=== PATIENT | female | born 1980 | race Caucasian/White ===

== ENCOUNTER → 2019-04-17 | Outpatient (CLI) | payer OTHER ==
[2019-04-17 17:56] LABS: BASO % 0.6 % (0.0-1.0); EOS # 0.2 10^3/uL (0.0-0.50); EOS % 3.4 % (0.0-3.0); HEMATOCRIT 35.4 % (36.0-47.0); HEMOGLOBIN 10.9 g/dl (12.0-15.5); LYMPH # 1.6 10^3/uL (1.5-4.5); LYMPH % 29.6 % (24.0-44.0); MEAN CORPUSCULAR HEMOGLOBIN 26.6 pg (27.0-33.0); MEAN CORPUSCULAR HGB CONC 30.8 g/dl (32.0-36.5); MEAN CORPUSCULAR VOLUME 86.3 fl (80.0-96.0); MONO # 0.3 10^3/uL (0.0-0.8); MONO % 5.1 % (0.0-5.0); NEUTROPHILS # 3.3 10^3/uL (1.8-7.7); NEUTROPHILS % 61.1 % (36.0-66.0); PLATELET COUNT, AUTOMATED 320 10^3/uL (150-450); WHITE BLOOD COUNT 5.3 10^3/uL (4.0-10.0)
[2019-04-17 18:11] LABS: ALBUMIN 3.6 GM/DL (3.2-5.2); ALT/SGPT 17 U/L (12-78); BILIRUBIN,TOTAL 0.3 MG/DL (0.2-1.0); BLOOD UREA NITROGEN 11 MG/DL (7-18); CALCIUM LEVEL 8.8 MG/DL (8.5-10.1); CARBON DIOXIDE LEVEL 29 MEQ/L (21-32); CHLORIDE LEVEL 104 MEQ/L (98-107); CHOLESTEROL LEVEL 167 MG/DL (<200); CREATININE FOR GFR 0.52 MG/DL (0.55-1.30); FREE T4 0.93 NG/DL (0.76-1.46); GLOMERULAR FILTRATION RATE > 60.0 (>60); GLUCOSE, FASTING 80 MG/DL (70-100); HDL CHOLESTEROL 66 MG/DL (>40); IRON (FE) 36 UG/DL (50-170); LDL CHOLESTEROL 83 MG/DL (<100); MAGNESIUM LEVEL 1.8 MG/DL (1.8-2.4); NON-HDL-C 101 MG/DL; PERCENT SATURATION 10.2 % (13.2-45.0); PHOSPHORUS LEVEL 3.5 MG/DL (2.5-4.9); POTASSIUM SERUM 4.1 MEQ/L (3.5-5.1); SODIUM LEVEL 141 MEQ/L (136-145); TOTAL IRON BINDING CAPACITY 352 UG/DL (250-450); TOTAL PROTEIN 6.3 GM/DL (6.4-8.2); TRIGLYCERIDES LEVEL 91 MG/DL (<150)
[2019-04-20 09:02] LABS: VITAMIN B12 LEVEL 385 PG/ML
[2019-04-20 09:03] LABS: FOLATE 15.7 NG/ML
== END ==
LOC: M SMT 10:38
PROVIDERS: ATTEND Physician Assistant
DX: Z13.29 Encounter for screening for other suspected endocrine disorder (principal); E28.2 Polycystic ovarian syndrome

== ENCOUNTER → 2019-05-08 | Outpatient (CLI) | payer OTHER ==
[~2019-05-08] MED LIST: B-12100T2 PO; BIOT5TAB3 PO; CALC-190 PO; CHOL50002 PO; FOLI0.4T2 PO; FURO20TA2 PO; IRON27TA2 PO; K-TA10TA PO; MAGN400C2 PO; METF850T4 PO; NIAC100T9 PO; PANT500T PO; PREG25CA PO; PROBCAP14 PO; PROZ20CA11 PO; PYRI25TA2 PO; RIBO400T PO; RITA10TA PO; SING10TA32 PO; [UNRECOGNIZED DRUG - CODE] MC; [UNRECOGNIZED DRUG - CODE] PO
[2019-05-08 18:26] LABS: BASO % 0.7 % (0.0-1.0); EOS # 0.2 10^3/uL (0.0-0.50); EOS % 3.5 % (0.0-3.0); HEMOGLOBIN 10.2 g/dl (12.0-15.5); LYMPH # 1.3 10^3/uL (1.5-4.5); MEAN CORPUSCULAR HEMOGLOBIN 25.7 pg (27.0-33.0); MEAN CORPUSCULAR VOLUME 85.6 fl (80.0-96.0); MONO # 0.5 10^3/uL (0.0-0.8); MONO % 8.7 % (0.0-5.0); NEUTROPHILS # 3.6 10^3/uL (1.8-7.7); NEUTROPHILS % 63.9 % (36.0-66.0); PLATELET COUNT, AUTOMATED 322 10^3/uL (150-450); RED BLOOD COUNT 3.97 10^6/uL (4.00-5.40); WHITE BLOOD COUNT 5.7 10^3/uL (4.0-10.0)
[2019-05-08 18:35] LABS: HCG, SERUM QUALITATIVE NEGATIVE (NEGATIVE)
== END ==
LOC: M SMT 14:03
PROVIDERS: ATTEND Physician Assistant
DX: Z01.818 Encounter for other preprocedural examination (principal)

== ENCOUNTER 2019-05-12 08:04 | Observation (INO) | payer OTHER ==
[~2019-05-12] VITALS: Ht 167.6 cm; Wt 87.1 kg
[~2019-05-12 08:04] MED LIST changes: -[UNRECOGNIZED DRUG - CODE] MC
[2019-05-12] MEDS ORDERED: ceFAZolin SOD 1 GM in D5W MINI-BAG PLUS 50 ML IV ONE (08:15)
[2019-05-12] MEDS ORDERED: LR 1,000 ML IV ONE (08:15)
[2019-05-12] MEDS ORDERED: [UNRECOGNIZED DRUG - CODE] MC (08:42)
[2019-05-12] MEDS ORDERED: DEXTROSE 50% 50 ML SYRINGE As Ordered ONE (10:12)
[2019-05-12] MEDS ORDERED: PROPOFOL 200 MG/20 ML VIAL As Ordered ONE (10:13)
[2019-05-12] MEDS ORDERED: ONDANSETRON 4MG/2ML VIAL (J2405) As Ordered ONE ×3 (10:13→15:23)
[2019-05-12] MEDS ORDERED: ROCURONIUM BROMIDE 50 MG/5 ML VIAL As Ordered ONE (10:13)
[2019-05-12] MEDS ORDERED: dexameTHASONE 4 MG/ML 1ML VIAL (J1100) As Ordered ONE (10:13)
[2019-05-12] MEDS ORDERED: LIDOCAINE 2% INJ 100 MG/5 ML SDV (FOR ANES.) As Ordered ONE (10:13)
[2019-05-12] MEDS ORDERED: MIDAZOLAM INJ 2 MG/2 ML VIAL (J2250) As Ordered ONE (10:14)
[2019-05-12] MEDS ORDERED: fentaNYL 250 MCG/5 ML INJECTION (J3010) As Ordered ONE (10:14)
[2019-05-12] MEDS ORDERED: DEXTROSE 50% 50 ML SYRINGE IV ONE (10:15)
[2019-05-12] MEDS ORDERED: SEVOFLURANE INHAL SOLN 250 ML BTL As Ordered ONE (10:27)
[2019-05-12] MEDS ORDERED: ePHEDrine SULFATE 25 MG/5 ML(5MG/ML) SYRINGE As Ordered ONE (11:26)
[2019-05-12] MEDS ORDERED: GLYCOPYRROLATE INJ 0.2 MG/ML 2 ML VIAL As Ordered ONE (11:27)
[2019-05-12] MEDS ORDERED: NEOSTIGMINE 10 MG/10 ML VIAL (J2710) As Ordered ONE (11:27)
[2019-05-12] MEDS ORDERED: ACETAMINOPHEN 1000MG 100ML IV BTL (OFIRMEV) (J0131 PER 10MG) As Ordered ONE (11:41)
[2019-05-12] MEDS ORDERED: HYDROmorphone HCL 2 MG/ML 1ML VIAL (J1170) As Ordered ONE (11:51)
[2019-05-12] MEDS ORDERED: LIDOCAINE 1% SDV INJ 30 ML VIAL As Ordered ONE (11:53)
[2019-05-12] MEDS ORDERED: BUPIVACAINE HCL 0.5% 30 ML VIAL As Ordered ONE (11:53)
--- NOTE | 2019-05-12 14:55 | POST-OPPD ---
Postoperative Procedure Note Date Of Procedure: May 12, 2019 PREOPERATIVE DIAGNOSIS: panniculitis POSTOPERATIVE DIAGNOSIS: same FINDINGS: extensive panniculitis PROCEDURE: Extended panniculectomy FleurdeLis with rectus muscle plication. SURGEON: Dr Gama ANESTHESIA: General SPECIMENS: Pannus ESTIMATED BLOOD LOSS: 200cc REPLACED: none DRAINS: 4 PAVITHRA drains 10 mm COMPLICATIONS: none POSTOPERATIVE CONDITION: stable Dict [id number] KAREN GAMA DO May 12, 2019 14:55
[2019-05-12] MEDS ORDERED: fentaNYL 100 MCG/2 ML INJECTION (J3010) As Ordered ONE (15:23)
[2019-05-12] MEDS ORDERED: PERCOCET 5MG/325MG TAB As Ordered ONE (15:23)
[2019-05-12] MEDS ORDERED: LR 1,000 ML IV SCH (15:30)
[2019-05-12] MEDS ORDERED: PERCOCET 5MG/325MG TAB PO PRN (15:30)
[2019-05-12] MEDS ORDERED: ONDANSETRON 4MG/2ML VIAL (J2405) IV PRN ×2 (15:30)
[2019-05-12] MEDS: fentaNYL 100 MCG/2 ML INJECTION (J3010) IV PRN ×5 (15:37→16:00)
[2019-05-12] MEDS: HYDROMORPHONE HCL 0.5 MG/ 0.5 ML SYRINGE (J1170 PER 1) IV PRN ×3 (16:11→20:34)
[2019-05-12 17:00] VITALS: BP 134/73
[2019-05-12 17:30] VITALS: BP 131/71
[2019-05-12] MEDS: LR 1,000 ML IV SCH (18:14)
[2019-05-12] MEDS: ceFAZolin SOD 1 GM in D5W MINI-BAG PLUS 50 ML IV SCH (18:14)
[2019-05-12 18:30] VITALS: BP 139/86
[2019-05-12] MEDS: PERCOCET 5MG/325MG TAB PO PRN ×2 (18:42→22:55)
[2019-05-12 19:30] VITALS: BP 108/67
[2019-05-12 20:30] VITALS: BP 104/67
[2019-05-12 21:30] VITALS: BP 114/72
[2019-05-13] MEDS: HYDROMORPHONE HCL 0.5 MG/ 0.5 ML SYRINGE (J1170 PER 1) IV PRN ×5 (02:03→21:16)
[2019-05-13 02:30] VITALS: BP 112/75
[2019-05-13] MEDS: ceFAZolin SOD 1 GM in D5W MINI-BAG PLUS 50 ML IV SCH (03:17)
[2019-05-13] MEDS: PERCOCET 5MG/325MG TAB PO PRN ×4 (05:14→20:14)
[2019-05-13] MEDS: LR 1,000 ML IV SCH (05:14)
[2019-05-13 06:00] VITALS: BP 121/76
[2019-05-13 07:29] LABS: HEMATOCRIT 24.6 % (36.0-47.0); HEMOGLOBIN 7.7 g/dl (12.0-15.5); MEAN CORPUSCULAR HEMOGLOBIN 26.2 pg (27.0-33.0); MEAN CORPUSCULAR HGB CONC 31.3 g/dl (32.0-36.5); MEAN CORPUSCULAR VOLUME 83.7 fl (80.0-96.0); PLATELET COUNT, AUTOMATED 305 10^3/uL (150-450); RED BLOOD COUNT 2.94 10^6/uL (4.00-5.40); WHITE BLOOD COUNT 8.3 10^3/uL (4.0-10.0)
--- NOTE | 2019-05-13 09:45 | IPNPDOC ---
Subjective General Date/Time Seen The patient was seen on 05/13/19 at 8:15 am. Subject Chief Complaint/History The patient is a 39-year-old female admitted with a reason for visit of Panniculitis and pain control. She is POD 1 after extended panniculectomy with rectus muscle plication. Patient reports still significant post op pain, which is controlled with Dilaudid IV injections. Not ready to switch to full PO medications yet. Tolerating liquids, small meals. Ambulating, urinating well. No CP. SOB, palpitations, dizziness. Current Medications Current Medications Current Medications Cefazolin Sodium 1 gm/Dextrose 50 ml @ 100 mls/hr Q8H IV Last administered on 05/13/19at 03:17; Start 05/12/19 at 19:00; Stop 05/13/19 at 03:29; Status DC Fentanyl Citrate (Sublimaze) 25 mcg Q5MP PRN IV MODERATE PAIN (PS 4-7) Last administered on 05/12/19at 15:55; Start 05/12/19 at 15:30; Stop 05/12/19 at 16:10; Status DC Hydromorphone HCl (Dilaudid) 0.2 mg Q5MP PRN IV MODERATE/SEVERE PAIN (PS 5-10) Last administered on 05/12/19at 16:18; Start 05/12/19 at 15:30; Stop 05/12/19 at 16:30; Status DC Hydromorphone HCl (Dilaudid) 0.5 mg Q4HP PRN IV SEVERE PAIN (PS 8-10) Last administered on 05/13/19at 08:40; Start 05/12/19 at 15:30 Lactated Ringer's 1,000 ml @ 75 mls/hr [id number] IV Last administered on 05/13/19at 05:14; Start 05/12/19 at 15:30 Lactated Ringer's 1,000 ml @ 80 mls/hr [id number] IV ; Start 05/12/19 at 15:30; Stop 05/12/19 at 16:30; Status DC Ondansetron HCl (ZOFRAN INJection) 4 mg Q4HP PRN IV NAUSEA OR VOMITING Last administered on 05/12/19at 15:44; Start 05/12/19 at 15:30; Stop 05/12/19 at 16:30; Status DC Ondansetron HCl (ZOFRAN INJection) 4 mg Q6HP PRN IV NAUSEA; Start 05/12/19 at 15:30 Oxycodone/ Acetaminophen (Percocet 5mg/ 325mg Tablet) 1 tab ASDIRECTED PRN PO MILD/MODERATE PAIN (PS 1-7) Last administered on 05/12/19at 15:37; Start 05/12/19 at 15:30; Stop 05/12/19 at 16:30; Status DC Oxycodone/ Acetaminophen (Percocet 5mg/ 325mg Tablet) 1 tab Q4HP PRN PO MILD PAIN (PS 1-4) Last administered on 05/13/19at 05:14; Start 05/12/19 at 15:30 Allergies Coded Allergies: morphine (Verified Allergy, Severe, ANAPHYLAXIS, 05/12/19) Objective Physical Examination Examination GENERAL APPEARANCE:Patient seen, laying in bed, awake, alert, and oriented. Com fortable, in no acute distress. SKIN: Warm and moist. Incision intact. HEENT: Normocephalic, atraumatic. [place] palpebral conjunctiva, anicteric sclerae. Lips and mucosa appear moist. NECK: Supple, no thyromegaly. No obvious jugular venous distention. LUNGS: Clear to auscultation bilaterally. No wheezing appreciated. HEART: No chest wall abnormalities. Regular rate and rhythm with no murmurs appreciated. ABDOMEN: Abdomen is soft. Flaps viable. Incision intact. PAVITHRA drainage serosanguinous. Post opt pain. Minimal ecchymosis. Vital Signs Vital Signs Date Time Temp Pulse Resp B/P (MAP) Pulse Ox O2 Delivery O2 Flow Rate FiO2 05/13/19 08:40 16 05/13/19 06:00 96.7 78 121/76 (91) 100 05/12/19 16:34 2 I&Os I&O- Last 24 Hours up to 6 AM 05/13/19 06:00 Intake Total 3735 ml Output Total 1030 ml Balance 2705 ml Laboratory Data Labs 24H Laboratory Tests 2 05/12/19 10:31: Bedside Glucose (Misc Panel) 123H 05/12/19 16:22: Bedside Glucose (Misc Panel) 123H 05/13/19 07:05: Nucleated Red Blood Cells % (auto) 0.0 CBC/BMP Laboratory Tests 05/13/19 07:05 Red Blood Count 2.94 L, Mean Corpuscular Volume 83.7, Mean Corpuscular Hemoglobin 26.2 L, Mean Corpuscular Hemoglobin Concent 31.3 L, Red Cell Distribution Width 14.4 Impression S/p extended panniculectomy with rectus muscle plication. Doing well and expectant with recovery. Patient's pain level corresponds with extent of the surgery. Will continue with IV and po pain medicine, gradually switching to PO Percocet. Patient's education given, she states understanding and willingness. H/H drop, asymptomatic, consistent with surgery. Repeat CBC, aroung 1-2 pm. No indication for transfusion at this time. Continue with ambulation. D/c IVF Continue with Incentive spirometry, PAVITHRA monitoring. D/c planning after pain control has been achieved. Plan / VTE VTE Prophylaxis Ordered?: Yes KAREN GAMA DO May 13, 2019 09:45
[2019-05-13 10:00] VITALS: BP 124/82
--- NOTE | 2019-05-13 12:05 | RO ---
DATE OF PROCEDURE: 05/12/2019 PREOPERATIVE DIAGNOSIS: Panniculitis. POSTOPERATIVE DIAGNOSIS: Panniculitis. PROCEDURE: Extended panniculectomy with rectus muscle plication and panniculectomy [id number]. ATTENDING SURGEON: Dolores Lutz DO FIELD PARTY MANAGER: ANESTHESIA: General. SPECIMEN: Pannus. BLOOD LOSS: 200 mL. No replacement needed. DRAINS: Four drains, Acosta-Foley 10 mm flat. COMPLICATIONS: No complications. POSTOP CONDITION: Stable. PROCEDURE: This is a 39-year-old female status post gastric bypass. The patient lost about 200 pounds. She has significant pannus, a massive amount of excess skin. She is very compliant with her diet, has minimal amount of fat, but all the skin did not retract creating a significant pannus, which is above and below the umbilicus. The patient is scheduled for extended panniculectomy with [id number] approach and possible rectus muscle plication. All the risks and benefits and alternatives were discussed with the patient at length. She understands that she will have a large scar, vertical and horizontal, and she is willing to proceed. After obtaining informed consent and marking the patient in the holding area, she was brought into the operating room, placed in supine position. General anesthesia was induced. Preoperative antibiotics are given. Sequential stockings placed on the lower calves. After the anesthesia was induced, a Castillo catheter was introduced into the bladder without any difficulties. She was prepped and draped in the usual sterile fashion. Outlined her lower abdominal incision at 7 cm above the vaginal crease. The incision was carried out using a 10 blade and then careful dissection was done until the rectus muscle was identified using electrocautery. The patient has very large vessels, so most vessels were suture ligated and cauterized at the same time. So we first started raising a flap along the rectus fascia until the umbilicus was encountered and a rhomboid fashion incision was done around the umbilicus and this split the lower portion of the flap and then continued raising the flap superiorly until the xiphoid process was identified and costal margins laterally. There is significant amount of midline skin as well, which was marked out for future [id number] incision. Then the patient was placed in Trendelenburg position and then the rectus fascia is reviewed has some weakening in the middle so the plication was performed. We used two layer suturing with #0 Vicryl and a #1 PDS locking suture burying the knot with #3-0 Vicryl sutures right above the pubic area. After plication was completed, the patient's midsection was measured out so no undue tension would be created and the middle portion of the abdominal wall. Skin was excised totaling 654 grams at the midsection. After excision, the midsection was reapproximated with interrupted #0 Vicryl sutures and #3-0 Monocryl sutures creating a good contour but no tension. Then the patient was placed in the reflex position and the lower portion of the panus was measured and resected, totaling whole amount of panus including the midsection 2271 grams. After all of the excess was resected, it was tailored to the lower incision and we started our closure with interrupted #0 Vicryl sutures and running V-Loc suture #3-0 Monocryl as well as #3-0 Monocryl interrupted sutures. The umbilical stump was brought into the new opening at the incision line of the vertical portion of the [id number] and suture were placed with #3-0 Monocryl sutures and #5-0 plain. Four Acosta-Foley drains were placed inferiorly through the incision. Prineo dressing was applied and 4 x 4 and Xeroform to the umbilicus and a compression dressing. The patient was extubated in the operating room without any difficulties, transferred to the recovery room in stable condition. She is going to be staying in the reflex position for now and she is admitted for observation.
[2019-05-13 14:00] VITALS: BP 121/80
[2019-05-13 15:07] LABS: HEMOGLOBIN 9.1 g/dl (12.0-15.5); MEAN CORPUSCULAR HEMOGLOBIN 27.2 pg (27.0-33.0); MEAN CORPUSCULAR HGB CONC 31.4 g/dl (32.0-36.5); MEAN CORPUSCULAR VOLUME 86.6 fl (80.0-96.0); PLATELET COUNT, AUTOMATED 332 10^3/uL (150-450); RED BLOOD COUNT 3.35 10^6/uL (4.00-5.40); WHITE BLOOD COUNT 8.4 10^3/uL (4.0-10.0)
[2019-05-13] MEDS: FLUoxetine 20 MG CAP PO SCH ×2 (15:23→20:13)
[2019-05-13] MEDS: METHYLPHENIDATE 5 MG TAB PO SCH ×2 (15:42→20:13)
[2019-05-13] MEDS: metFORMIN 850 MG TAB PO SCH ×2 (15:42→20:13)
--- NOTE | 2019-05-13 19:07 | IPNPDOC ---
Subjective General Date/Time Seen The patient was seen on 05/13/19 at 18:59. Subject Chief Complaint/History The patient is a 39-year-old female admitted with a reason for visit of Panniculitis and post op pain management. Patient states the pain is still persistent with current regiment. She has high peaks and valleys. Otherwise recovering well. Ambulating, tolerating diet, had a BM this morning. Current Medications Current Medications Current Medications Cefazolin Sodium 1 gm/Dextrose 50 ml @ 100 mls/hr Q8H IV Last administered on 05/13/19at 03:17; Start 05/12/19 at 19:00; Stop 05/13/19 at 03:29; Status DC Fentanyl Citrate (Sublimaze) 25 mcg Q5MP PRN IV MODERATE PAIN (PS 4-7) Last administered on 05/12/19at 15:55; Start 05/12/19 at 15:30; Stop 05/12/19 at 16:10; Status DC Fluoxetine HCl (PROzac) 20 mg BID PO ; Start 05/13/19 at 09:00 Hydromorphone HCl (Dilaudid) 0.2 mg Q5MP PRN IV MODERATE/SEVERE PAIN (PS 5-10) Last administered on 05/12/19at 16:18; Start 05/12/19 at 15:30; Stop 05/12/19 at 16:30; Status DC Hydromorphone HCl (Dilaudid) 0.5 mg Q4HP PRN IV SEVERE PAIN (PS 8-10) Last administered on 05/13/19at 18:00; Start 05/12/19 at 15:30 Lactated Ringer's 1,000 ml @ 75 mls/hr [id number] IV Last administered on 05/13/19at 05:14; Start 05/12/19 at 15:30; Stop 05/13/19 at 10:26; Status DC Lactated Ringer's 1,000 ml @ 80 mls/hr [id number] IV ; Start 05/12/19 at 15:30; Stop 05/12/19 at 16:30; Status DC Metformin HCl (Glucophage) 850 mg TID PO Last administered on 05/13/19at 15:42; Start 05/13/19 at 16:00 Methylphenidate HCl (Ritalin) 10 mg TID PO Last administered on 05/13/19 15:42; Start 05/13/19 at 16:00 Ondansetron HCl (ZOFRAN INJection) 4 mg Q4HP PRN IV NAUSEA OR VOMITING Last administered on 05/12/19 15:44; Start 05/12/19 at 15:30; Stop 05/12/19 at 16:30; Status DC Ondansetron HCl (ZOFRAN INJection) 4 mg Q6HP PRN IV NAUSEA; Start 05/12/19 at 15:30 Oxycodone/ Acetaminophen (Percocet 5mg/ 325mg Tablet) 1 tab ASDIRECTED PRN PO MILD/MODERATE PAIN (PS 1-7) Last administered on 05/12/19 15:37; Start 05/12/19 at 15:30; Stop 05/12/19 at 16:30; Status DC Oxycodone/ Acetaminophen (Percocet 5mg/ 325mg Tablet) 1 tab Q4HP PRN PO MILD PAIN (PS 1-4) Last administered on 05/13/19 15:43; Start 05/12/19 at 15:30 Allergies Coded Allergies: morphine (Verified Allergy, Severe, ANAPHYLAXIS, 05/12/19) Objective Physical Examination Examination GENERAL APPEARANCE:Patient seen, laying in bed, awake, alert, and oriented. Comfortable, in no acute distress. SKIN: Warm and moist. HEENT: Normocephalic, atraumatic. [place] palpebral conjunctiva, anicteric sclerae. Lips and mucosa appear moist. NECK: Supple, no thyromegaly. No obvious jugular venous distention. LUNGS: Clear to auscultation bilaterally. No wheezing appreciated. HEART: No chest wall abnormalities. Regular rate and rhythm with no murmurs appreciated. ABDOMEN: Abdomen is Soft, non distended. Post op reproducible pain, consistent with surgery. Vital Signs Vital Signs Date Time Temp Pulse Resp B/P (MAP) Pulse Ox O2 Delivery O2 Flow Rate FiO2 05/13/19 18:10 16 05/13/19 14:00 97.0 82 121/80 (94) 100 05/12/19 16:34 2 I&Os I&O- Last 24 Hours up to 6 AM 05/13/19 06:00 Intake Total 3735 ml Output Total 1030 ml Balance 2705 ml Laboratory Data Labs 24H Laboratory Tests 2 05/13/19 07:05: Nucleated Red Blood Cells % (auto) 0.0 05/13/19 14:55: Nucleated Red Blood Cells % (auto) 0.0 CBC/BMP Laboratory Tests 05/13/19 07:05 Red Blood Count 2.94 L, Mean Corpuscular Volume 83.7, Mean Corpuscular Hemoglobin 26.2 L, Mean Corpuscular Hemoglobin Concent 31.3 L, Red Cell Distribution Width 14.4 05/13/19 14:55 Red Blood Count 3.35 L, Mean Corpuscular Volume 86.6, Mean Corpuscular Hemoglobin 27.2, Mean Corpuscular Hemoglobin Concent 31.4 L, Red Cell Distribution Width 14.6 H Impression Post extended panniculectomy POD 1. Will readjust pain management to eliminate break through pain. Dilaudid 0.5 mg Q 3hrs prn severe pain Percocet 325/5mg @4 hrs prn for break through pain. H/H repeated, stable. Continue with monitoring. All findings and plan discussed with patient and she agrees with plan. Plan / VTE VTE Prophylaxis Ordered?: Yes KAREN GAMA DO May 13, 2019 19:07
[2019-05-13 22:00] VITALS: BP 143/85
[2019-05-14] MEDS: MAALOX 30 ML SUSP *UDC PO PRN ×3 (00:14→13:43)
[2019-05-14] MEDS: HYDROMORPHONE HCL 0.5 MG/ 0.5 ML SYRINGE (J1170 PER 1) IV PRN ×4 (00:14→11:24)
[2019-05-14] MEDS: PERCOCET 5MG/325MG TAB PO PRN ×3 (00:59→09:04)
[2019-05-14 06:00] VITALS: BP 120/69
[2019-05-14] MEDS: FLUoxetine 20 MG CAP PO SCH (09:03)
[2019-05-14] MEDS: METHYLPHENIDATE 5 MG TAB PO SCH ×2 (09:03→16:18)
[2019-05-14] MEDS: metFORMIN 850 MG TAB PO SCH ×2 (09:03→16:18)
--- NOTE | 2019-05-14 12:11 | IPNPDOC ---
Subjective General Date/Time Seen The patient was seen on 05/14/19 at 12:06. Doing better with pain control. Ambulating. No CP, SOB, Dizziness. Subject Chief Complaint/History The patient is a 39-year-old female admitted with a reason for visit of Panniculitis. S/p extended panniculectomy with rectus muscle plication, POD 2. Slowly improving with pain control. Patient is ready today to try to switch to PO meds trial. Complaint with walking. Tolerating food. Current Medications Current Medications Current Medications Al Hydrox/Mg Hydrox/Simethicone (Mylanta) 30 ml Q4HP PRN PO INDIGESTION Last administered on 05/14/19 09:10; Start 05/14/19 at 00:15 Cefazolin Sodium 1 gm/Dextrose 50 ml @ 100 mls/hr Q8H IV Last administered on 05/13/19 03:17; Start 05/12/19 at 19:00; Stop 05/13/19 at 03:29; Status DC Fentanyl Citrate (Sublimaze) 25 mcg Q5MP PRN IV MODERATE PAIN (PS 4-7) Last administered on 05/12/19at 15:55; Start 05/12/19 at 15:30; Stop 05/12/19 at 16:10; Status DC Fluoxetine HCl (PROzac) 20 mg BID PO Last administered on 05/14/19at 09:03; St art 05/13/19 at 09:00 Hydromorphone HCl (Dilaudid) 0.2 mg Q5MP PRN IV MODERATE/SEVERE PAIN (PS 5-10) Last administered on 05/12/19at 16:18; Start 05/12/19 at 15:30; Stop 05/12/19 at 16:30; Status DC Hydromorphone HCl (Dilaudid) 0.5 mg Q3HP PRN IV SEVERE PAIN (PS 8-10) Last administered on 05/14/19at 11:24; Start 05/13/19 at 19:15 Hydromorphone HCl (Dilaudid) 0.5 mg Q4HP PRN IV SEVERE PAIN (PS 8-10) Last administered on 05/13/19at 18:00; Start 05/12/19 at 15:30; Stop 05/13/19 at 19:11; Status DC Lactated Ringer's 1,000 ml @ 75 mls/hr [id number] IV Last administered on 05/13/19 05:14; Start 05/12/19 at 15:30; Stop 05/13/19 at 10:26; Status DC Lactated Ringer's 1,000 ml @ 80 mls/hr [id number] IV ; Start 05/12/19 at 15:30; Stop 05/12/19 at 16:30; Status DC Metformin HCl (Glucophage) 850 mg TID PO Last administered on 05/14/19 09:03; Start 05/13/19 at 16:00 Methylphenidate HCl (Ritalin) 10 mg TID PO Last administered on 05/14/19 09:03; Start 05/13/19 at 16:00 Ondansetron HCl (ZOFRAN INJection) 4 mg Q4HP PRN IV NAUSEA OR VOMITING Last administered on 05/12/19 15:44; Start 05/12/19 at 15:30; Stop 05/12/19 at 16:30; Status DC Ondansetron HCl (ZOFRAN INJection) 4 mg Q6HP PRN IV NAUSEA Last administered on 05/13/19 22:40; Start 05/12/19 at 15:30 Oxycodone/ Acetaminophen (Percocet 5mg/ 325mg Tablet) 1 tab ASDIRECTED PRN PO MILD/MODERATE PAIN (PS 1-7) Last administered on 05/12/19 15:37; Start 05/12/19 at 15:30; Stop 05/12/19 at 16:30; Status DC Oxycodone/ Acetaminophen (Percocet 5mg/ 325mg Tablet) 1 tab Q4HP PRN PO MILD PAIN (PS 1-4) Last administered on 05/13/19 20:14; Start 05/12/19 at 15:30 Oxycodone/ Acetaminophen (Percocet 5mg/ 325mg Tablet) 2 tab Q4HP PRN PO SEVERE PAIN (PS 8-10) Last administered on 05/14/19 09:04; Start 05/14/19 at 00:15 Allergies Coded Allergies: morphine (Verified Allergy, Severe, ANAPHYLAXIS, 05/12/19) Objective Physical Examination Examination GENERAL APPEARANCE:Patient seen, laying in bed, awake, alert, and oriented. Comfortable, in no acute distress. SKIN: Warm and moist. Incisions intact. HEENT: Normocephalic, atraumatic. [place] palpebral conjunctiva, anicteric sclerae. Lips and mucosa appear moist. NECK: Supple, no thyromegaly. No obvious jugular venous distention. LUNGS: Clear to auscultation bilaterally. No wheezing appreciated. HEART: No chest wall abnormalities. Regular rate and rhythm with no murmurs appreciated. ABDOMEN: Abdomen is soft NT/ND. PAVITHRA serosanguinous, trending down. Vital Signs Vital Signs Date Time Temp Pulse Resp B/P (MAP) Pulse Ox O2 Delivery O2 Flow Rate FiO2 05/14/19 11:24 18 05/14/19 06:00 97.4 80 120/69 (86) 100 05/12/19 16:34 2 I&Os I&O- Last 24 Hours up to 6 AM 05/14/19 06:00 Intake Total 3480 ml Output Total 145 ml Balance 3335 ml Laboratory Data Labs 24H Laboratory Tests 2 05/13/19 14:55: Nucleated Red Blood Cells % (auto) 0.0 CBC/BMP Laboratory Tests 05/13/19 14:55 Red Blood Count 3.35 L, Mean Corpuscular Volume 86.6, Mean Corpuscular Hemoglobin 27.2, Mean Corpuscular Hemoglobin Concent 31.4 L, Red Cell Distribution Width 14.6 H Impression Extended panniculectomy POD 2. Post op pain management. Switch to Lortab elixir. Patient used this medication successfully for previous post op pain control. Continue with PAVITHRA monitoring, numbers trending down. Repeat CBC D/c planning if CBC stable, and able to switch to PO pain management. Commode for present gate instability and inability to squat low enough. Plan / VTE VTE Prophylaxis Ordered?: Yes KAREN GAMA DO May 14, 2019 12:11
[2019-05-14] MEDS ORDERED: HYDROcodone/APAP LIQUID 7.5-325MG 15ML UDC (LORTAB ELIXIR) PO PRN ×2 (12:15→13:00)
[2019-05-14 12:45] LABS: HEMATOCRIT 25.2 % (36.0-47.0); HEMOGLOBIN 7.9 g/dl (12.0-15.5); MEAN CORPUSCULAR HEMOGLOBIN 26.9 pg (27.0-33.0); MEAN CORPUSCULAR HGB CONC 31.3 g/dl (32.0-36.5); MEAN CORPUSCULAR VOLUME 85.7 fl (80.0-96.0); PLATELET COUNT, AUTOMATED 287 10^3/uL (150-450); RED BLOOD COUNT 2.94 10^6/uL (4.00-5.40); WHITE BLOOD COUNT 6.5 10^3/uL (4.0-10.0)
[2019-05-14] MEDS ORDERED: HYDROcodone/APAP LIQUID 7.5-325MG 15ML UDC (LORTAB ELIXIR) PO ONE ×2 (14:00→15:00)
[2019-05-14] MEDS ORDERED: FERR325T18 PO (14:47)
[2019-05-14] MEDS ORDERED: HYDR1SOL22 PO (14:47)
[2019-05-14 15:02] VITALS: BP 126/75
[2019-05-14] MEDS ORDERED: FERROUS SULFATE 325MG TAB PO SCH (16:00)
[2019-05-14] MEDS ORDERED: COLA100C5 PO (18:01)
[2019-05-14] MEDS ORDERED: MYLASSUD PO (18:01)
--- NOTE | 2019-05-14 18:13 | DS.PDOC ---
Discharge Summary General Date of Admission May 12, 2019 at 16:45 Date of Discharge 05/14/19 Attending Physician: KAREN GAMA DO Discharge Summary PROCEDURES PERFORMED DURING STAY: Extended panniculectomy with rectus muscle plication. ADMITTING DIAGNOSES: 1. Post op panniculectomy, Post op pain. DISCHARGE DIAGNOSES: 1. same. COMPLICATIONS/CHIEF COMPLAINT: Panniculitis. HISTORY OF PRESENT ILLNESS: 39 y/o female s/p massive weight loss s/p gastric bypass. Presented to office with severe panniculitis. Scheduled for extended panniculectomy with muscle plication. HOSPITAL COURSE: Extended panniculectomy with rectus muscle plication Danay Bah procedure. Admitted to pain control. Uneventful recovery. Able to switch to PO pain control on POD 2. Was active with ambulation and tolerating diet on POD 0. DISCHARGE MEDICATIONS: Please see below. ALLERGIES: Please see below. PHYSICAL EXAMINATION ON DISCHARGE: VITAL SIGNS: Please see below. GENERAL: Awake, alert HEENT: WNL NECK: supple CARDIOVASCULAR EXAMINATION: CTA b/l RESPIRATORY EXAMINATION: no stridor ABDOMINAL EXAMINATION: Soft, non distended. Incision intact. Umbilicus viable. Flaps viable. EXTREMITIES: No edema SKIN: no rashes NEUROLOGICAL EXAMINATION: AAO x 3 LABORATORY DATA: Please see below. PROGNOSIS: Stable ACTIVITY: [As tolerated]. DIET: Regular DISCHARGE PLAN: Stable for discharge on PO pain meds. F/up with plastic surgery on 05/18/19 DISPOSITION: home. DISCHARGE INSTRUCTIONS: 1. Empty PAVITHRA drains, monitor. HOB elevated Ambulate with caution ITEMS TO FOLLOWUP ON ON OUTPATIENT: 1.H/H. DISCHARGE CONDITION: Stable. TIME SPENT ON DISCHARGE: Greater than 30 minutes. Vital Signs/I&Os Vital Signs Date Time Temp Pulse Resp B/P (MAP) Pulse Ox O2 Delivery O2 Flow Rate FiO2 05/14/19 15:50 18 05/14/19 06:00 97.4 80 120/69 (86) 100 05/12/19 16:34 2 I&O- Last 24 Hours up to 6 AM 05/14/19 06:00 Intake Total 3480 ml Output Total 145 ml Balance 3335 ml Laboratory Data Labs 24H Laboratory Tests 2 05/14/19 12:25: Nucleated Red Blood Cells % (auto) 0.0 CBC/BMP Laboratory Tests 05/14/19 12:25 Red Blood Count 2.94 L, Mean Corpuscular Volume 85.7, Mean Corpuscular Hemoglobin 26.9 L, Mean Corpuscular Hemoglobin Concent 31.3 L, Red Cell Distribution Width 14.6 H Discharge Medications Scheduled Ferrous Sulfate (Ferrous Sulfate) 325 Mg Tablet, 325 MG PO TID Fluoxetine HCl (Prozac) 20 Mg Capsule, 20 MG PO BID, (Reported) Metformin HCl (Metformin HCl) 850 Mg Tablet, 850 MG PO TID, (Reported) Methylphenidate HCl (Ritalin) 10 Mg Tablet, 10 MG PO TID, (Reported) Montelukast Sodium (Singulair) 10 Mg Tablet, 10 MG PO DAILY, (Reported) Pregabalin (Lyrica) 25 Mg Capsule, 25 MG PO DAILY, (Reported) Scheduled PRN Aluminum/Magnesium/Simeth (Mag-Al Plus Suspension) 30 Ml Oral.susp, 30 ML PO Q4HP PRN for INDIGESTION Docusate Sodium (Colace) 100 Mg Capsule, 100 MG PO Q8HP PRN for CONSTIPATION Hydrocodone/Acetaminophen (Hydrocodone-Acetamn 7.5-325/15) 15 Ml Solution, 10 ML PO Q4HP PRN for MODERATE PAIN (PS 5-7) Allergies Coded Allergies: morphine (Verified Allergy, Severe, ANAPHYLAXIS, 05/12/19) KAREN GAMA DO May 14, 2019 18:13
== END 2019-05-14 18:42 | disposition home or self-care (01) ==
LOC: M SDC 08:04 → M MS5PR 16:45
PROVIDERS: ADMIT Plastic Surgery Surgery of the Hand; ATTEND Plastic Surgery Surgery of the Hand
DX: L53.8 Other specified erythematous conditions (principal); G89.18 Other acute postprocedural pain; Z98.84 Bariatric surgery status; M54.07 Panniculitis affecting regions of neck and back, lumbosacral region; E28.2 Polycystic ovarian syndrome; F90.9 Attention-deficit hyperactivity disorder, unspecified type; G47.61 Periodic limb movement disorder; M79.7 Fibromyalgia; F43.10 Post-traumatic stress disorder, unspecified; K90.9 Intestinal malabsorption, unspecified; D50.9 Iron deficiency anemia, unspecified; R60.9 Edema, unspecified; Z79.899 Other long term (current) drug therapy; Z79.84 Long term (current) use of oral hypoglycemic drugs; Z88.5 Allergy status to narcotic agent
CPT/HCPCS: 15830; 15847; 36415; 85027; 88302; 96361; 96374; 96375; 96376; J0131; J0690; J1100; J1170; J2250; J2405; J2710; J3010

== ENCOUNTER 2019-05-20 10:05 | Observation (INO) | payer OTHER ==
[~2019-05-20] VITALS: Ht 167.6 cm; Wt 86.1 kg
[2019-05-20] VITALS (8 sets, daily range): BP systolic 118–140; BP diastolic 67–84
[~2019-05-20 10:05] MED LIST changes: +COLA100C5 PO; +FERR325T18 PO; +HYDR1SOL22 PO; +MYLASSUD PO; +[UNRECOGNIZED DRUG - CODE] MC
[2019-05-20] MEDS ORDERED: ACETAMINOPHEN TAB 650MG DOSE (2X325MG) PO PRN (10:45)
[2019-05-20 11:04] LABS: HEMATOCRIT 27.1 % (36.0-47.0); HEMOGLOBIN 8.6 g/dl (12.0-15.5); MEAN CORPUSCULAR HEMOGLOBIN 27.2 pg (27.0-33.0); MEAN CORPUSCULAR HGB CONC 31.7 g/dl (32.0-36.5); MEAN CORPUSCULAR VOLUME 85.8 fl (80.0-96.0); PLATELET COUNT, AUTOMATED 461 10^3/uL (150-450); RED BLOOD COUNT 3.16 10^6/uL (4.00-5.40); WHITE BLOOD COUNT 6.1 10^3/uL (4.0-10.0)
--- NOTE | 2019-05-20 11:23 | HPEPDOC ---
[facility] Medical History & Physical Date of Admission May 20, 2019 Date of Service: May 20, 2019 History and Physical CHIEF COMPLAINT: Lethargy/dizziness HISTORY OF PRESENT ILLNESS: Patient is a 39-year-old female with past medical history of PCOS, obesity status post gastric bypass, PTSD, endometriosis, ADHD was sent in from her plastic surgeon's office with concern for post op symptomatic anemia. She reportedly underwent panniculectomy on the this month and has been doing well post op until for the past several days when she feels lethargy and dizzy. Also reported to be more pale in face and gingiva. She reports a chronic history of anemia and concern for worsen anemia post op. Hb has been around 9-10 previou sly, noted to be at 7.9 post op. Currently denies any complaints apart from severe lethargy, including any fever, chills, nor abdominal discomfort. PAST MEDICAL HISTORY: Refer to [facility] PAST SURGICAL HISTORY: Kelsie-en-Y gastric bypass Partial hysterectomy Tonsillectomy Panniculectomy SOCIAL HISTORY: Denies tobacco, alcohol or illicit drug use. FAMILY HISTORY: CAD, DM, CVA, HTN, cancers ALLERGIES: Please see below. REVIEW OF SYSTEMS: 10 point review of system negative except as stated in [facility] HOME MEDICATIONS: Please see below. PHYSICAL EXAMINATION: General: No acute distress, weak, pale. Eyes: Normal sclera, EOMI, MAURILIO HENT: Atraumatic, neck supple, moist mucous membranes Cardiovascular: Normal rate, normal rhythm. No murmurs appreciated. Pulmonary: Clear to auscultation b/l, no wheezing GI: Soft, nondistended Skin: Warm and dry. Linear midline abdominal incision as well as transverse lower abdominal incisions clean and dry. No signficant abdominal tederness. Neuro: CN grossly intact. No focal deficits. Strengths equal b/l. Psych: oriented x 3 LABORATORY DATA: See below. IMAGING: pending CXR MICROBIOLOGY: Please see below. ASSESSMENT AND PLAN: 1. Suspected symptomatic anemia - Hb 8.6 today compare to ~10 at baseline. Concern for post op anemia. - Chronic anemia of unknown etiology for years. - c/w iron supplementation. May require hematology evaluation post discharge. Reported has had some workup with PMD but no definitive answer. - To transfuse 2 units of pRBC today and reassess status. - Will keep in observation overnight and repeat CBC in AM a swell as symptoms. - Will get CXR. Consider Abdominal CT if symptoms do not resolve with transfusion and no other etiology can be elucidated. 2. PCOS - On metformin. continue. 3. ADHD/PTSD/Enedometriosis- chronic DVT ppx: SCD. Hold chemical ppx due to anemia. Code status: Full code Vital Signs Vital Signs Date Time Temp Pulse Resp B/P (MAP) Pulse Ox O2 Delivery O2 Flow Rate FiO2 05/20/19 11:10 97.9 86 17 130/67 (88) 100 Laboratory Data Labs 24H Laboratory Tests 2 05/20/19 10:50: Nucleated Red Blood Cells % (auto) 0.0 CBC/BMP Laboratory Tests 05/20/19 10:50 Red Blood Count 3.16 L, Mean Corpuscular Volume 85.8, Mean Corpuscular Hemoglobin 27.2, Mean Corpuscular Hemoglobin Concent 31.7 L, Red Cell Distribution Width 14.9 H Home Medications Scheduled Ferrous Sulfate (Ferrous Sulfate) 325 Mg Tablet, 325 MG PO TID Fluoxetine HCl (Prozac) 20 Mg Capsule, 20 MG PO BID Metformin HCl (Metformin HCl) 850 Mg Tablet, 850 MG PO TID Methylphenidate HCl (Ritalin) 10 Mg Tablet, 10 MG PO TID Montelukast Sodium (Singulair) 10 Mg Tablet, 10 MG PO DAILY Pregabalin (Lyrica) 25 Mg Capsule, 25 MG PO DAILY Scheduled PRN Aluminum/Magnesium/Simeth (Mag-Al Plus Suspension) 30 Ml Oral.susp, 30 ML PO Q4HP PRN for INDIGESTION Docusate Sodium (Colace) 100 Mg Capsule, 100 MG PO Q8HP PRN for CONSTIPATION Hydrocodone/Acetaminophen (Hydrocodone-Acetamn 7.5-325/15) 15 Ml Solution, 10 ML PO Q4HP PRN for MODERATE PAIN (PS 5-7) Allergies Coded Allergies: morphine (Verified Allergy, Severe, ANAPHYLAXIS, 05/12/19) A-FIB/CHADSVASC A-FIB History Current/History of A-Fib/PAF?: No Current PO Anticoag Therapy: No EMERALD FARNSWORTH MD May 20, 2019 11:23
[2019-05-20 11:27] LABS: BLOOD UREA NITROGEN 8 MG/DL (7-18); CALCIUM LEVEL 8.4 MG/DL (8.5-10.1); CARBON DIOXIDE LEVEL 30 MEQ/L (21-32); CHLORIDE LEVEL 104 MEQ/L (98-107); CREATININE FOR GFR 0.51 MG/DL (0.55-1.30); GLOMERULAR FILTRATION RATE > 60.0 (>60); GLUCOSE, FASTING 63 MG/DL (70-100); POTASSIUM SERUM 3.9 MEQ/L (3.5-5.1); SODIUM LEVEL 139 MEQ/L (136-145)
[2019-05-20] MEDS ORDERED: DOCU100C17 PO (11:38)
[2019-05-20] MEDS ORDERED: HYDR1SOL PO (11:38)
--- NOTE | 2019-05-20 11:43 | REP ---
Clinical: Shortness of breath . Comparison: None . Findings: The mediastinum and cardiac silhouette are stable and within normal limits for portable technique. The lung silva are clear without acute consolidation, effusion, or pneumothorax. Skeletal structures are intact. Impression: No acute cardiopulmonary process appreciated. Electronically Signed by Daron Andrew MD 05/20/2019 11:35 A
[2019-05-20 12:02] LABS: FERRITIN 16 NG/ML (8-252); IRON (FE) 21 UG/DL (50-170); PERCENT SATURATION 6.5 % (13.2-45.0); TOTAL IRON BINDING CAPACITY 325 UG/DL (250-450)
[2019-05-20 12:07] LABS: FOLATE 23.7 NG/ML; VITAMIN B12 LEVEL 603 PG/ML
[2019-05-20] MEDS: HYDROcodone/APAP LIQUID 7.5-325MG 15ML UDC (LORTAB ELIXIR) PO PRN ×2 (14:59→19:57)
[2019-05-20] MEDS ORDERED: FUROSEMIDE 40 MG/4 ML VIAL (J1940) IV ONE ×2 (15:00→18:30)
[2019-05-20] MEDS: FERROUS SULFATE 325MG TAB PO SCH ×2 (16:23→20:57)
[2019-05-20] MEDS: METHYLPHENIDATE 5 MG TAB PO SCH (16:23)
--- NOTE | 2019-05-20 17:23 | IPNPDOC ---
Subjective General Date/Time Seen The patient was seen on 05/20/19 at 17:18. Subject Chief Complaint/History The patient is a 39-year-old female admitted with a reason for visit of Post Operative Anemia. Patient s/p 2 units PRBC transfusion. Feeling much better. Urinating well. No pain. She feels calmer and agreeable to stay until tomorrow for observation. No other complains. Current Medications Current Medications Current Medications Acetaminophen (Tylenol Tab) 650 mg Q4H PRN PO PAIN OR FEVER; Start 05/20/19 at 10:45 Acetaminophen/ Hydrocodone Bitart (Lortab Liquid 7.5-325 Mg/15ml) 15 ml Q4H PRN PO PAIN Last administered on 05/20/19at 14:59; Start 05/20/19 at 14:45 Ferrous Sulfate (Ferrous Sulfate) 325 mg TID PO Last administered on 05/20/19at 16:23; Start 05/20/19 at 16:00 Fluoxetine HCl (PROzac) 20 mg BID PO ; Start 05/20/19 at 21:00 Home Med (Med Rec Complete!) ASDIRECTED XX ; Start 05/20/19 at 11:45; Stop 05/20/19 at 11:45; Status DC Metformin HCl (Glucophage) 850 mg TID@0800,1200,1800 PO ; Start 05/20/19 at 18:00 Methylphenidate HCl (Ritalin) 10 mg TID@0800,1200,1600 PO Last administered on 05/20/19at 16:23; Start 05/20/19 at 16:00 Montelukast Sodium (Singulair) 10 mg QHS PO ; Start 05/20/19 at 21:00 Pregabalin (Lyrica) 25 mg QHS PO ; Start 05/20/19 at 21:00 Allergies Coded Allergies: morphine (Verified Allergy, Severe, ANAPHYLAXIS, 05/12/19) Objective Physical Examination Examination GENERAL APPEARANCE:Patient seen, laying in bed, awake, alert, and oriented. Comfortable, in no acute distress. SKIN: Warm and moist. Incision intact. Umbilicus viable. No bulging, no hematoma. PAVITHRA with serosanguinous drainage. Much reduced. HEENT: Normocephalic, atraumatic. [place] palpebral conjunctiva, anicteric sclerae. Lips and mucosa appear moist. NECK: Supple, no thyromegaly. No obvious jugular venous distention. LUNGS: Clear to auscultation bilaterally. No wheezing appreciated. HEART: No chest wall abnormalities. Regular rate and rhythm with no murmurs appreciated. ABDOMEN: Abdomen is Soft, NT/ND. Vital Signs Vital Signs Date Time Temp Pulse Resp B/P (MAP) Pulse Ox O2 Delivery O2 Flow Rate FiO2 05/20/19 15:40 98.9 97 18 122/78 (93) 100 Laboratory Data Labs 24H Laboratory Tests 2 05/20/19 10:50: Nucleated Red Blood Cells % (auto) 0.0, Anion Gap 5L, Glomerular Filtration Rate > 60.0, Blood Urea Nitrogen 8, Creatinine 0.51L, Sodium Level 139, Potassium Level 3.9, Chloride Level 104, Carbon Dioxide Level 30, Calcium Level 8.4L, Iron Level 21L, Total Iron Binding Capacity 325, Transferrin % Saturation 6.5L, Ferritin 16, Vitamin B12 Level 603, Folate 23.7 CBC/BMP Laboratory Tests 05/20/19 10:50 Red Blood Count 3.16 L, Mean Corpuscular Volume 85.8, Mean Corpuscular Hemoglobin 27.2, Mean Corpuscular Hemoglobin Concent 31.7 L, Red Cell Distribution Width 14.9 H, Calcium Level 8.4 L Impression S/p transfusion 2 PRBC Much improved. Pain controlled Repeat CBC post transfusion. Continue with diuresing PAVITHRA output improved Continue with observation, patient agrees to stay to morning. Obtain new abdominal binder. Findings communicated with medical team. Plan / VTE VTE Prophylaxis Ordered?: Yes KAREN GAMA DO May 20, 2019 17:23
[2019-05-20] MEDS: metFORMIN 850 MG TAB PO SCH (18:00)
[2019-05-20] MEDS: FLUoxetine 20 MG CAP PO SCH (18:00)
[2019-05-20 18:14] LABS: HEMATOCRIT 32.4 % (36.0-47.0); HEMOGLOBIN 10.3 g/dl (12.0-15.5); MEAN CORPUSCULAR HEMOGLOBIN 26.8 pg (27.0-33.0); MEAN CORPUSCULAR HGB CONC 31.8 g/dl (32.0-36.5); MEAN CORPUSCULAR VOLUME 84.2 fl (80.0-96.0); PLATELET COUNT, AUTOMATED 498 10^3/uL (150-450); RED BLOOD COUNT 3.85 10^6/uL (4.00-5.40); WHITE BLOOD COUNT 7.1 10^3/uL (4.0-10.0)
[2019-05-20] MEDS ORDERED: PREGABALIN 25 MG CAP (LYRICA) PO SCH (21:00)
[2019-05-20] MEDS ORDERED: MONTELUKAST 10 MG TAB PO SCH (21:00)
[2019-05-21] VITALS: BP 126/72
[2019-05-21] MEDS: HYDROcodone/APAP LIQUID 7.5-325MG 15ML UDC (LORTAB ELIXIR) PO PRN ×3 (00:02→09:27)
[2019-05-21 04:00] VITALS: BP 122/73
[2019-05-21 07:30] LABS: HEMATOCRIT 29.3 % (36.0-47.0); HEMOGLOBIN 9.5 g/dl (12.0-15.5); MEAN CORPUSCULAR HEMOGLOBIN 27.9 pg (27.0-33.0); MEAN CORPUSCULAR HGB CONC 32.4 g/dl (32.0-36.5); MEAN CORPUSCULAR VOLUME 86.2 fl (80.0-96.0); PLATELET COUNT, AUTOMATED 395 10^3/uL (150-450); WHITE BLOOD COUNT 5.9 10^3/uL (4.0-10.0)
[2019-05-21 07:51] LABS: BLOOD UREA NITROGEN 6 MG/DL (7-18); CALCIUM LEVEL 8.1 MG/DL (8.5-10.1); CARBON DIOXIDE LEVEL 32 MEQ/L (21-32); CHLORIDE LEVEL 104 MEQ/L (98-107); CREATININE FOR GFR 0.54 MG/DL (0.55-1.30); GLOMERULAR FILTRATION RATE > 60.0 (>60); GLUCOSE, FASTING 52 MG/DL (70-100); POTASSIUM SERUM 3.5 MEQ/L (3.5-5.1); SODIUM LEVEL 140 MEQ/L (136-145)
[2019-05-21 08:00] VITALS: BP 122/67
--- NOTE | 2019-05-21 08:09 | IPNPDOC ---
Subjective General Date/Time Seen The patient was seen on 05/21/19 at 07:10. Subject Chief Complaint/History The patient is a 39-year-old female admitted with a reason for visit of Post Operative Anemia. S/p 2 units PRBC and diuresis. Doing much better. No pain. Patient states her symptoms of dizziness and tiredness resolved. PAVITHRA drains significantly reduced in output. Tolerating diet. Current Medications Current Medications Current Medications Acetaminophen (Tylenol Tab) 650 mg Q4H PRN PO PAIN OR FEVER; Start 05/20/19 at 10:45 Acetaminophen/ Hydrocodone Bitart (Lortab Liquid 7.5-325 Mg/15ml) 15 ml Q4H PRN PO PAIN Last administered on 05/21/19at 04:25; Start 05/20/19 at 14:45 Ferrous Sulfate (Ferrous Sulfate) 325 mg TID PO Last administered on 05/20/19at 20:57; Start 05/20/19 at 16:00 Fluoxetine HCl (PROzac) 20 mg BID@0900,1900 PO Last administered on 05/20/19at 18:00; Start 05/20/19 at 19:00 Home Med (Med Rec Complete!) ASDIRECTED XX ; Start 05/20/19 at 11:45; Stop 05/20/19 at 11:45; Status DC Metformin HCl (Glucophage) 850 mg TID@0800,1200,1800 PO Last administered on 05/20/19at 18:00; Start 05/20/19 at 18:00 Methylphenidate HCl (Ritalin) 10 mg TID@0800,1200,1600 PO Last administered on 05/20/19at 16:23; Start 05/20/19 at 16:00 Montelukast Sodium (Singulair) 10 mg QHS PO Last administered on 05/20/19 20:57; Start 05/20/19 at 21:00 Pregabalin (Lyrica) 25 mg QHS PO Last administered on 05/20/19 20:57; Start 05/20/19 at 21:00 Allergies Coded Allergies: morphine (Verified Allergy, Severe, ANAPHYLAXIS, 05/12/19) Objective Physical Examination Examination GENERAL APPEARANCE:Patient seen, laying in bed, awake, alert, and oriented. Comfortable, in no acute distress. SKIN: Warm and moist. Incisions intact. PAVITHRA serosanguinous drainage. No red blood. Umbilicus viable. HEENT: Normocephalic, atraumatic. [place] palpebral conjunctiva, anicteric sclerae . Lips and mucosa appear moist. NECK: Supple, no thyromegaly. No obvious jugular venous distention. LUNGS: Clear to auscultation bilaterally. No wheezing appreciated. HEART: No chest wall abnormalities. Regular rate and rhythm with no murmurs appreciated. ABDOMEN: Abdomen is soft NT/ND. EXTREMITIES: Extremities have no deformities. Edema much improved. Vital Signs Vital Signs Date Time Temp Pulse Resp B/P (MAP) Pulse Ox O2 Delivery O2 Flow Rate FiO2 05/21/19 04:55 18 05/21/19 04:00 98.0 81 122/73 (89) 98 I&Os I&O- Last 24 Hours up to 6 AM 05/21/19 06:00 Intake Total 1520 ml Output Total 5081 ml Balance -3561 ml Laboratory Data Labs 24H Laboratory Tests 2 05/20/19 10:50: Nucleated Red Blood Cells % (auto) 0.0, Anion Gap 5L, Glomerular Filtration Rate > 60.0, Blood Urea Nitrogen 8, Creatinine 0.51L, Sodium Level 139, Potassium Level 3.9, Chloride Level 104, Carbon Dioxide Level 30, Calcium Level 8.4L, Iron Level 21L, Total Iron Binding Capacity 325, Transferrin % Saturation 6.5L, Ferritin 16, Vitamin B12 Level 603, Folate 23.7 05/20/19 17:49: Nucleated Red Blood Cells % (auto) 0.0 05/21/19 06:58: Nucleated Red Blood Cells % (auto) 0.0, Anion Gap 4L, Glomerular Filtration Rate > 60.0, Blood Urea Nitrogen 6L, Creatinine 0.54L, Sodium Level 140, Potassium Level 3.5, Chloride Level 104, Carbon Dioxide Level 32, Calcium Level 8.1L CBC/BMP Laboratory Tests 05/20/19 10:50 Red Blood Count 3.16 L, Mean Corpuscular Volume 85.8, Mean Corpuscular Hemoglobin 27.2, Mean Corpuscular Hemoglobin Concent 31.7 L, Red Cell Distribution Width 14.9 H, Calcium Level 8.4 L 05/20/19 17:49 Red Blood Count 3.85 L, Mean Corpuscular Volume 84.2, Mean Corpuscular Hemoglobin 26.8 L, Mean Corpuscular Hemoglobin Concent 31.8 L, Red Cell Distribution Width 14.7 H 05/21/19 06:58 Red Blood Count 3.40 L, Mean Corpuscular Volume 86.2, Mean Corpuscular Hemoglobin 27.9, Mean Corpuscular Hemoglobin Concent 32.4, Red Cell Distribution Width 14.6 H, Calcium Level 8.1 L Impression Post op anemia, fluid overload. Much improved Stable for discharge from plastic surgery point. Keep monitoring PAVITHRA drains. Resume and keep all home medications. Pain control with Lortab elixir F/u plastic surgery office next week. Instructions given to patient. she agrees with plan Plan / VTE VTE Prophylaxis Ordered?: Yes KAREN GAMA DO May 21, 2019 08:09
[2019-05-21] MEDS: METHYLPHENIDATE 5 MG TAB PO SCH ×2 (08:44→12:41)
[2019-05-21] MEDS: FERROUS SULFATE 325MG TAB PO SCH (08:45)
[2019-05-21] MEDS: metFORMIN 850 MG TAB PO SCH ×2 (08:45→12:41)
[2019-05-21] MEDS: FLUoxetine 20 MG CAP PO SCH (08:45)
[2019-05-21] MEDS ORDERED: FUROSEMIDE 40 MG/4 ML VIAL (J1940) IV ONE (09:00)
[2019-05-21 12:00] VITALS: BP 120/78
[2019-05-21] MEDS ORDERED: HYDR1SOL PO (14:44)
[2019-05-21] MEDS ORDERED: LASI40TA9 PO (14:58)
--- NOTE | 2019-05-21 18:56 | IPNPDOC ---
Subjective Date Seen The patient was seen on 05/21/19. Subjective Chief Complaint/HPI 39F hx of pcos, endometriosis, adhd, gastric bypass, chronic anemia, chronic edema usually on lasix, recently underwent a panniculectomy, admitted with sob, edema, and anemia. Pt is feeling much better today. Still has occassional dizziness and dyspnea on exertion. Reports voiding over 4 liters yesterday with significant improvement in symptoms. General: Denies: ROS Unobtainable, Chills, Night Sweats, Fatigue, Malaise, Normal Appetite, Other Symptoms Constitutional: Reports: Fatigue Eyes: Denies: Pain, Vision change, Conjunctivae inflammation, Eyelid inflammation, Redness, Other ENT: Denies: Head Aches, Ear Pain, Dysphagia, Sinus Congestion, Post Nasal Drip, Sore Throat, Epistaxis, Other Symptoms Skin: Denies: Rash, Lesions, Jaundice, Bruising, Itching, Dry, Breakdown, Nail Changes, Other Pulmonary: Reports: Dyspnea Cardiovascular: Reports: Orthopnea, Lt Headedness Gastrointestinal: Denies: Nausea, Vomiting, Abdominal Pain, Diarrhea, Constipation, Melena, Hematochezia, Other Symptoms Genitourinary: Denies: Dysuria, Frequency, Incontinence, Hematuria, Retention, Other Symptoms Hematologic: Denies: Bruising, Bleeding Excessively, Petecchia, Purpura, Enlarged Lymph Nodes, Other Hematologic Endocrine: Denies: Polydipsia, Polyphagia, Polyuria, Heat Intolerance, Cold Intolerance, Other Endocrine Sx Musculoskeletal: Denies: Neck Pain, Back Pain, Shoulder Pain, Arm Pain, Hand Pain, Leg Pain, Foot Pain, Joint Pain, Muscle Pain, Spasms, Other Symptoms Neurological: Denies: Weakness, Numbness, Incoordination, Change in speech, Confusion, Seizures, Other Symptoms Psych: Denies: Mood Normal, Anxiety, Depression, Memory Issues, Thoughts of Self Harm, Anger, Thoughts of Harming Other, Other Psych Objective Physical Examination General Exam: Positive: Alert, Cooperative, No Acute Distress Eye Exam: Positive: PERRLA, Conjunctiva & lids normal, EOMI ENT Exam: Positive: Atraumatic Neck Exam: Positive: Supple Chest Exam: Positive: Clear to auscultation, Normal air movement Heart Exam: Positive: Tachycardic, Regular Rhythm, Normal S1, Normal S2; Negative: Murmurs Telemetry: Positive: No significant arrhythmia Abdomen Exam: Positive: Normal bowel sounds, Soft; Negative: Tenderness Extremity Exam: Positive: Edema Skin Exam: Positive: Nl turgor and temperature; Negative: Rash Neuro Exam: Positive: Normal Gait, Normal Speech Psych Exam: Positive: Mental status NL Assessment /Plan Assessment 39f p/w dyspnea on exertion, orthopnea, edema and anemia dyspnea likely multifactorial anemia contributing suspect volume overload contributing as well unclear why she has had so much edema in past family hx of chf at young age echo performed rule out valve pathology, nonischemic cardiomyopathy, etc will follow up results and notify pt Anemia iron deficiency per pt has family hx of unexplained anemia has been on iron supplements without improvement possibly related to gastric bypass? mediterranean anemia? pt to follow up with hematology for further evaluation Pt reports feeling much better since voiding off fluids requests dc home to follow up outpatient which is reasonable resumed lasix at higher dose 40 bid Plan/VTE VTE Prophylaxis Ordered?: Yes Plan Diagnostics: TTE Anticipated Discharge: Home Disposition dced home VS, I&O, 24H, Fishbone Vital Signs/I&O Vital Signs Date Time Temp Pulse Resp B/P (MAP) Pulse Ox O2 Delivery O2 Flow Rate FiO2 05/21/19 12:00 97.9 78 18 120/78 (92) 100 I&O- Last 24 Hours up to 6 AM 05/21/19 05:59 Intake Total 1520 ml Output Total 5081 ml Balance -3561 ml Laboratory Data 24H LABS Laboratory Tests 2 05/21/19 06:58: Nucleated Red Blood Cells % (auto) 0.0, Anion Gap 4L, Glomerular Filtration Rate > 60.0, Blood Urea Nitrogen 6L, Creatinine 0.54L, Sodium Level 140, Potassium Level 3.5, Chloride Level 104, Carbon Dioxide Level 32, Calcium Level 8.1L 05/21/19 09:33: Bedside Glucose (Misc Panel) 155H CBC/BMP Laboratory Tests 05/21/19 06:58 Red Blood Count 3.40 L, Mean Corpuscular Volume 86.2, Mean Corpuscular Hemoglobin 27.9, Mean Corpuscular Hemoglobin Concent 32.4, Red Cell Distribution Width 14.6 H, Calcium Level 8.1 L GURINDER FLORES MD May 21, 2019 18:56
--- NOTE | 2019-05-21 22:16 | ECHO ---
DATE OF PROCEDURE: 05/21/2019 AGE: 39 GENDER: Female HEIGHT: 66 inches WEIGHT: 189 pounds BODY SURFACE AREA: 1.96 m2 PATIENT LOCATION: Inpatient, room 4111 REFERRING PHYSICIAN: Hitesh Burgess MD INDICATION: Edema. 2-D MEASUREMENTS: RV: 3.5 cm LA: 4.6 cm Septum: 0.9 cm Posterior wall: 0.9 cm Aortic root: 3.0 cm LA: 3.7 cm LVEF: 65% DOPPLER MEASUREMENTS: AV: 1.35 m/s LVOT: 0.89 m/s LVOT diameter: 2.1 cm MV-E: 82, A: 57, EA ratio: 1.4 Early mitral deceleration time: 190 ms E prime: 9.5, A prime: 8, E/E prime ratio: 9.5 PV: 0.8 m/s Pulmonary artery acceleration time: 127 ms PASP: 22 mmHg IVC: 2.1 cm COMMENTS: Normal sinus rhythm without intraventricular conduction disturbance. M-mode and two-dimensional echocardiography was performed with pulsed, continuous wave, color flow and tissue Doppler studies. Normal left ventricular size, wall thickness and wall motion. Normal left atrial size and Doppler assessment of LV diastolic function and estimated mean left atrial pressure. Normal right heart chamber sizes and wall motion with normal estimated pulmonary arterial pressure. IVC size upper limits of normal with normal respiratory collapse against an elevated central venous pressure. Normal appearing and functioning valvular structures. Normal aortic root size. No apparent intracardiac mass or pericardial effusion.
== END 2019-05-21 15:30 | disposition home or self-care (01) ==
LOC: M PED 10:35
PROVIDERS: ADMIT Pediatrics; ATTEND Hospitalist
DX: D50.9 Iron deficiency anemia, unspecified (principal); E28.2 Polycystic ovarian syndrome; R06.02 Shortness of breath; R42 Dizziness and giddiness; F90.9 Attention-deficit hyperactivity disorder, unspecified type; F43.10 Post-traumatic stress disorder, unspecified; Z98.84 Bariatric surgery status; Z79.899 Other long term (current) drug therapy
CPT/HCPCS: 36415; 36430; 71045; 80048; 82607; 82728; 82746; 83550; 85027; 86850; 86900; 86901; 86920; 93306; 96374; 96376; J1940; P9016

== ENCOUNTER → 2019-06-10 | Outpatient (CLI) | payer OTHER ==
[~2019-06-10] MED LIST changes: +AZEL0.055 NARES; +CVS1CAP2 PO; +DOCU100C17 PO; +FERR150C PO; +HYDR1SOL PO; +LASI40TA9 PO
[2019-06-10 17:32] LABS: BASO # 0.1 10^3/uL (0.0-0.2); BASO % 0.6 % (0.0-1.0); EOS # 0.5 10^3/uL (0.0-0.50); EOS % 5.8 % (0.0-3.0); HEMATOCRIT 40.5 % (36.0-47.0); HEMOGLOBIN 12.8 g/dl (12.0-15.5); LYMPH # 2.5 10^3/uL (1.5-4.5); LYMPH % 30.3 % (24.0-44.0); MEAN CORPUSCULAR HEMOGLOBIN 26.7 pg (27.0-33.0); MEAN CORPUSCULAR HGB CONC 31.6 g/dl (32.0-36.5); MEAN CORPUSCULAR VOLUME 84.4 fl (80.0-96.0); MONO # 0.4 10^3/uL (0.0-0.8); MONO % 4.4 % (0.0-5.0); NEUTROPHILS # 4.8 10^3/uL (1.8-7.7); NEUTROPHILS % 58.7 % (36.0-66.0); PLATELET COUNT, AUTOMATED 392 10^3/uL (150-450); WHITE BLOOD COUNT 8.1 10^3/uL (4.0-10.0)
[2019-06-10 17:56] LABS: ALBUMIN 3.9 GM/DL (3.2-5.2); ALT/SGPT 24 U/L (12-78); BILIRUBIN,TOTAL 0.2 MG/DL (0.2-1.0); BLOOD UREA NITROGEN 18 MG/DL (7-18); CALCIUM LEVEL 9.4 MG/DL (8.5-10.1); CARBON DIOXIDE LEVEL 31 MEQ/L (21-32); CHLORIDE LEVEL 95 MEQ/L (98-107); FERRITIN 40 NG/ML (8-252); GLOMERULAR FILTRATION RATE > 60.0 (>60); GLUCOSE, FASTING 179 MG/DL (70-100); IRON (FE) 55 UG/DL (50-170); PERCENT SATURATION 15.1 % (13.2-45.0); POTASSIUM SERUM 3.3 MEQ/L (3.5-5.1); SODIUM LEVEL 138 MEQ/L (136-145); TOTAL IRON BINDING CAPACITY 365 UG/DL (250-450); TOTAL PROTEIN 7.3 GM/DL (6.4-8.2)
== END ==
LOC: M LAB 16:25
PROVIDERS: ATTEND Family Medicine
DX: R60.9 Edema, unspecified (principal); D50.9 Iron deficiency anemia, unspecified

== ENCOUNTER → 2019-06-23 | Outpatient (CLI) | payer OTHER ==
[2019-06-23 18:15] LABS: BLOOD UREA NITROGEN 13 MG/DL (7-18); CALCIUM LEVEL 8.8 MG/DL (8.5-10.1); CARBON DIOXIDE LEVEL 32 MEQ/L (21-32); CHLORIDE LEVEL 102 MEQ/L (98-107); CREATININE FOR GFR 0.71 MG/DL (0.55-1.30); GLOMERULAR FILTRATION RATE > 60.0 (>60); GLUCOSE, FASTING 103 MG/DL (70-100); MAGNESIUM LEVEL 1.7 MG/DL (1.8-2.4); POTASSIUM SERUM 3.8 MEQ/L (3.5-5.1); SODIUM LEVEL 140 MEQ/L (136-145)
== END ==
LOC: M SMT 14:23
PROVIDERS: ATTEND Physician Assistant
DX: L50.2 Urticaria due to cold and heat (principal)

== ENCOUNTER → 2019-06-29 | Outpatient (CLI) | payer OTHER | LOC: M SMT 13:36 | PROVIDERS: ATTEND Physician Assistant | DX: Z84.81 Family history of carrier of genetic disease (principal) ==

== ENCOUNTER → 2019-10-02 | Outpatient (REF) | payer OTHER, SELFPAY | LOC: M LAB REF 16:31 | PROVIDERS: ATTEND Family Medicine | DX: B37.3 Candidiasis of vulva and vagina (principal) ==

== ENCOUNTER 2020-01-31 15:48 | Emergency (ER) | payer OTHER, SELFPAY ==
[~2020-01-31] VITALS: Ht 167.6 cm; Wt 98.2 kg
[2020-01-31] MEDS ORDERED: AMLO2.5T3 (15:57)
[2020-01-31] MEDS ORDERED: methylPREDNISolone INJ 125 MG/2 ML VIAL (J2930) IM ONE (16:45)
[2020-01-31] MEDS ORDERED: LIDOCAINE 5% OINT 30 GM TOP ONE (16:45)
[2020-01-31] MEDS ORDERED: KETOROLAC 60 MG/2 ML VIAL (J1885) IM ONE (16:45)
[2020-01-31 17:30] VITALS: BP 135/74
[2020-01-31] MEDS ORDERED: MEDR4PAK PO (18:10)
== END 2020-01-31 18:15 | disposition home or self-care (01) ==
LOC: M ED 15:48
DX: M54.5 Low back pain (principal); Z98.84 Bariatric surgery status; Z79.899 Other long term (current) drug therapy; Z88.5 Allergy status to narcotic agent
CPT/HCPCS: 96372; 99283; J1885; J2930

== ENCOUNTER → 2020-02-02 | Outpatient (CLI) | payer OTHER, SELFPAY ==
[~2020-02-02] MED LIST changes: +AMLO2.5T3; +MEDR4PAK PO; +SPIR100T3 PO
[2020-02-02 18:08] LABS: BASO # 0.1 10^3/uL (0.0-0.2); BASO % 0.8 % (0.0-1.0); EOS # 0.2 10^3/uL (0.0-0.5); EOS % 2.9 % (0.0-3.0); HEMATOCRIT 38.8 % (36.0-47.0); HEMOGLOBIN 12.3 g/dl (12.0-15.5); LYMPH # 2.2 10^3/uL (1.5-5.0); LYMPH % 33.3 % (24.0-44.0); MEAN CORPUSCULAR HGB CONC 31.7 g/dl (32.0-36.5); MEAN CORPUSCULAR VOLUME 88.2 fl (80.0-96.0); MONO # 0.5 10^3/uL (0.0-0.8); MONO % 7.1 % (0.0-5.0); NEUTROPHILS # 3.6 10^3/uL (1.5-8.5); NEUTROPHILS % 55.4 % (36.0-66.0); PLATELET COUNT, AUTOMATED 295 10^3/uL (150-450); WHITE BLOOD COUNT 6.5 10^3/uL (4.0-10.0)
[2020-02-02 18:14] LABS: ALBUMIN 3.7 GM/DL (3.2-5.2); ALT/SGPT 38 U/L (12-78); BILIRUBIN,TOTAL 0.4 MG/DL (0.2-1.0); BLOOD UREA NITROGEN 15 MG/DL (7-18); CALCIUM LEVEL 8.6 MG/DL (8.5-10.1); CARBON DIOXIDE LEVEL 32 MEQ/L (21-32); CHLORIDE LEVEL 98 MEQ/L (98-107); CREATININE FOR GFR 0.69 MG/DL (0.55-1.30); FERRITIN 41 NG/ML (8-252); GLOMERULAR FILTRATION RATE > 60.0 (>60); GLUCOSE, FASTING 73 MG/DL (70-100); IRON (FE) 71 UG/DL (50-170); PERCENT SATURATION 20.8 % (13.2-45.0); SODIUM LEVEL 138 MEQ/L (136-145); TOTAL IRON BINDING CAPACITY 342 UG/DL (250-450); TOTAL PROTEIN 6.7 GM/DL (6.4-8.2)
[2020-02-02 18:19] LABS: FOLATE 17.9 NG/ML; VITAMIN B12 LEVEL 381 PG/ML
[2020-02-02 18:31] LABS: HEMOGLOBIN A1c 5.2 %
== END ==
LOC: M PLALAB 15:19
PROVIDERS: ATTEND Physician Assistant
DX: D50.9 Iron deficiency anemia, unspecified (principal); E28.2 Polycystic ovarian syndrome

== ENCOUNTER 2020-02-04 13:12 | Emergency (ER) | payer OTHER ==
[~2020-02-04 13:12] MED LIST changes: -SPIR100T3 PO
[2020-02-04] MEDS ORDERED: SPIR100T3 PO (14:18)
[2020-02-04 14:35] LABS: BASO % 0.6 % (0.0-1.0); EOS # 0.2 10^3/uL (0.0-0.5); EOS % 3.5 % (0.0-3.0); HEMATOCRIT 46.1 % (36.0-47.0); HEMOGLOBIN 14.9 g/dl (12.0-15.5); LYMPH # 1.2 10^3/uL (1.5-5.0); LYMPH % 23.3 % (24.0-44.0); MEAN CORPUSCULAR HEMOGLOBIN 28.2 pg (27.0-33.0); MEAN CORPUSCULAR HGB CONC 32.3 g/dl (32.0-36.5); MEAN CORPUSCULAR VOLUME 87.3 fl (80.0-96.0); MONO # 0.4 10^3/uL (0.0-0.8); MONO % 7.6 % (0.0-5.0); NEUTROPHILS # 3.3 10^3/uL (1.5-8.5); NEUTROPHILS % 64.8 % (36.0-66.0); PLATELET COUNT, AUTOMATED 313 10^3/uL (150-450); RED BLOOD COUNT 5.28 10^6/uL (4.00-5.40); WHITE BLOOD COUNT 5.1 10^3/uL (4.0-10.0)
[2020-02-04 14:40] LABS: BLOOD UREA NITROGEN 11 MG/DL (7-18); CALCIUM LEVEL 9.5 MG/DL (8.5-10.1); CARBON DIOXIDE LEVEL 27 MEQ/L (21-32); CHLORIDE LEVEL 102 MEQ/L (98-107); CREATININE FOR GFR 0.74 MG/DL (0.55-1.30); GLOMERULAR FILTRATION RATE > 60.0 (>60); GLUCOSE, FASTING 76 MG/DL (70-100); POTASSIUM SERUM 4.3 MEQ/L (3.5-5.1); SODIUM LEVEL 135 MEQ/L (136-145)
[2020-02-04] MEDS: PANTOPRAZOLE 40MG INJ (PROTONIX) (C9113) IV ONE ×2 (14:56→15:14)
[2020-02-04] MEDS: NS 1,000 ML IV SCH ×2 (14:56→18:30)
[2020-02-04 15:02] LABS: BILIRUBIN,DIRECT 0.1 MG/DL (0.0-0.2); BILIRUBIN,TOTAL 0.5 MG/DL (0.2-1.0); TOTAL PROTEIN 7.7 GM/DL (6.4-8.2)
--- NOTE | 2020-02-04 15:10 | REP ---
Portable chest, 02:36 p.m., single AP view with the patient upright: Comparison is a 05/20/2019. The lung silva are clear. The cardiac size is normal. The jude, mediastinum, and skeletal structures are unremarkable. Impression: Negative portable chest. There is no interval change. Electronically Signed by Dave Flores MD 02/04/2020 03:01 P
[2020-02-04 21:37] VITALS: BP 139/72
== END 2020-02-04 21:39 | disposition home or self-care (01) ==
LOC: M ED 13:12
DX: B34.9 Viral infection, unspecified (principal); R50.9 Fever, unspecified; R19.7 Diarrhea, unspecified; E11.9 Type 2 diabetes mellitus without complications; I51.9 Heart disease, unspecified; Z98.84 Bariatric surgery status; Z79.84 Long term (current) use of oral hypoglycemic drugs; Z79.899 Other long term (current) drug therapy; Z88.5 Allergy status to narcotic agent
CPT/HCPCS: 71045; 80048; 80076; 81001; 83690; 85025; 87040; 87486; 87507; 87581; 87633; 87798; 99285; U0002

== ENCOUNTER → 2020-05-20 | Outpatient (CLI) | payer OTHER ==
[~2020-05-20] MED LIST changes: +SPIR100T3 PO
[2020-05-20 09:53] LABS: BASO # 0.1 10^3/uL (0.0-0.2); BASO % 0.9 % (0.0-1.0); EOS # 0.2 10^3/uL (0.0-0.5); EOS % 3.5 % (0.0-3.0); HEMATOCRIT 44.3 % (36.0-47.0); HEMOGLOBIN 14.1 g/dl (12.0-15.5); LYMPH # 1.6 10^3/uL (1.5-5.0); LYMPH % 22.7 % (24.0-44.0); MEAN CORPUSCULAR HEMOGLOBIN 28.3 pg (27.0-33.0); MEAN CORPUSCULAR HGB CONC 31.8 g/dl (32.0-36.5); MONO # 0.4 10^3/uL (0.0-0.8); MONO % 5.3 % (0.0-5.0); NEUTROPHILS # 4.6 10^3/uL (1.5-8.5); NEUTROPHILS % 67.2 % (36.0-66.0); PLATELET COUNT, AUTOMATED 407 10^3/uL (150-450); RED BLOOD COUNT 4.98 10^6/uL (4.00-5.40); WHITE BLOOD COUNT 6.8 10^3/uL (4.0-10.0)
[2020-05-20 10:28] LABS: ALBUMIN 3.6 GM/DL (3.2-5.2); ALT/SGPT 27 U/L (12-78); BILIRUBIN,TOTAL 0.4 MG/DL (0.2-1.0); BLOOD UREA NITROGEN 6 MG/DL (7-18); CALCIUM LEVEL 9.1 MG/DL (8.5-10.1); CARBON DIOXIDE LEVEL 32 MEQ/L (21-32); CHLORIDE LEVEL 104 MEQ/L (98-107); CREATININE FOR GFR 0.62 MG/DL (0.55-1.30); FERRITIN 42 NG/ML (8-252); GLOMERULAR FILTRATION RATE > 60.0 (>58); GLUCOSE, FASTING 79 MG/DL (70-100); IRON (FE) 71 UG/DL (50-170); PERCENT SATURATION 19.6 % (13.2-45.0); POTASSIUM SERUM 4.8 MEQ/L (3.5-5.1); SODIUM LEVEL 140 MEQ/L (136-145); TOTAL IRON BINDING CAPACITY 362 UG/DL (250-450)
[2020-05-20 10:31] LABS: HEMOGLOBIN A1c 5.2 %
[2020-05-20 10:36] LABS: TOTAL 25(OH) VITAMIN D 39.1 NG/ML (30.0-100.0)
[2020-05-20 10:37] LABS: VITAMIN B12 LEVEL 398 PG/ML
[2020-05-20 10:38] LABS: FOLATE 21.5 NG/ML
== END ==
LOC: M LAB 08:47
PROVIDERS: ATTEND Physician Assistant
DX: D50.9 Iron deficiency anemia, unspecified (principal)

== ENCOUNTER → 2021-01-19 | Outpatient (CLI) | payer OTHER ==
[~2021-01-19] MED LIST changes: -FOLI0.4T2 PO; +FOLI400T5 PO
[2021-01-19 18:27] LABS: BASO # 0.1 10^3/uL (0.0-0.2); BASO % 0.6 % (0.0-1.0); EOS # 0.1 10^3/uL (0.0-0.5); EOS % 1.5 % (0.0-3.0); HEMATOCRIT 42.6 % (36.0-47.0); HEMOGLOBIN 13.1 g/dl (12.0-15.5); LYMPH # 1.5 10^3/uL (1.5-5.0); LYMPH % 17.9 % (24.0-44.0); MEAN CORPUSCULAR HEMOGLOBIN 27.1 pg (27.0-33.0); MEAN CORPUSCULAR HGB CONC 30.8 g/dl (32.0-36.5); MEAN CORPUSCULAR VOLUME 88.2 fl (80.0-96.0); MONO # 0.4 10^3/uL (0.0-0.8); MONO % 5.1 % (2.0-8.0); NEUTROPHILS # 6.3 10^3/uL (1.5-8.5); NEUTROPHILS % 74.3 % (36.0-66.0); PLATELET COUNT, AUTOMATED 417 10^3/uL (150-450); RED BLOOD COUNT 4.83 10^6/uL (4.00-5.40); WHITE BLOOD COUNT 8.5 10^3/uL (4.0-10.0)
[2021-01-19 18:38] LABS: ALT/SGPT 22 U/L (12-78); BILIRUBIN,TOTAL 0.2 MG/DL (0.2-1.0); BLOOD UREA NITROGEN 12 MG/DL (7-18); CALCIUM LEVEL 9.1 MG/DL (8.5-10.1); CARBON DIOXIDE LEVEL 28 MEQ/L (21-32); CHLORIDE LEVEL 103 MEQ/L (98-107); FERRITIN 25 NG/ML (8-252); FREE T4 0.99 NG/DL (0.76-1.46); GLOMERULAR FILTRATION RATE > 60.0 (>58); GLUCOSE, FASTING 87 MG/DL (70-100); IRON (FE) 72 UG/DL (50-170); MAGNESIUM LEVEL 1.8 MG/DL (1.8-2.4); PERCENT SATURATION 18.6 % (13.2-45.0); POTASSIUM SERUM 4.1 MEQ/L (3.5-5.1); SODIUM LEVEL 137 MEQ/L (136-145); TOTAL IRON BINDING CAPACITY 387 UG/DL (250-450); TOTAL PROTEIN 7.1 GM/DL (6.4-8.2)
[2021-01-19 18:40] LABS: TOTAL 25(OH) VITAMIN D 36.1 NG/ML (30.0-100.0)
[2021-01-19 18:41] LABS: VITAMIN B12 LEVEL 477 PG/ML (247-911)
== END ==
LOC: M PLALAB 14:03
PROVIDERS: ATTEND Physician Assistant
DX: E28.2 Polycystic ovarian syndrome (principal); Z98.84 Bariatric surgery status

== ENCOUNTER → 2021-02-23 | Outpatient (CLI) | payer OTHER ==
--- NOTE | 2021-02-23 12:13 | REPVR ---
PROCEDURE INFORMATION: Exam: MR Head Without and With Contrast Exam date and time: 02/23/2021 10:08 AM Age: 40 years old Clinical indication: Pain; Headache not specified; Additional info: Headaches, change in moods TECHNIQUE: Imaging protocol: MR of the head without and with intravenous contrast. Contrast material: PROHANCE; Contrast volume: 20 ml; Contrast route: INTRAVENOUS (IV); COMPARISON: MRA BRAIN W/O CONTRAST 02/23/2021 10:41 AM FINDINGS: Brain: There is no abnormal leptomeningeal or parenchymal contrast enhancement. Labyrinth structures appear normal without evidence of mass or abnormal enhancement. The internal auditory canals are normal without mass or abnormal enhancement. Normal fluid signal is seen in the labyrinth structures. Cerebellopontine angle cisterns appear normal. No abnormal areas of signal intensity are seen. Diffusion images are normal. No evidence of acute infarction. No evidence of acute intracranial hemorrhage. No extra-axial fluid collections. Ventricles and cerebrospinal fluid spaces are normal in size and configuration for the patient's age. There is no evidence of mass-effect or midline shift. Flow voids of the [place] of [place] and major cerebral vascular structures appear intact. Craniocervical junction appears unremarkable, with normal position of cerebellar tonsils and no evidence of Chiari I malformation. Cerebral ventricles: Normal. No ventriculomegaly. Bones/joints: Unremarkable as visualized. Paranasal sinuses: There is right maxillary sinus retention cyst polyp. Mastoid air cells: There is fluid in left mastoid air cells. This shows increased T1 signal typically associated with chronic effusion. Orbital cavity: Unremarkable. Soft tissues: Unremarkable as visualized. IMPRESSION: 1. Unremarkable brain MRI for age. No acute infarct, evidence of acute hemorrhage, or evidence of mass. 2. Given the patients clinical history and / or findings on MRI, MRA to assess the intracranial vascular system would be appropriate. 3. Left mastoid effusion. Electronically signed by: Gwen Murrell On 02/23/2021 12:13:51 PM
--- NOTE | 2021-02-23 12:15 | REPVR ---
PROCEDURE INFORMATION: Exam: MR Angiogram Head Without Contrast, Arteries Exam date and time: 02/23/2021 10:08 AM Age: 40 years old Clinical indication: Pain; Headache; Additional info: Headaches, change in moods TECHNIQUE: Imaging protocol: MR angiogram head without contrast. Exam focused on the arteries. COMPARISON: No relevant prior studies available. FINDINGS: ANTERIOR CIRCULATION: Right internal carotid artery: Intracranial segment is patent with no significant stenosis. No aneurysm. Right middle cerebral artery: No occlusion or significant stenosis. No aneurysm. Right anterior cerebral artery: No occlusion or significant stenosis. No aneurysm. Left internal carotid artery: Intracranial segment is patent with no significant stenosis. No aneurysm. Left middle cerebral artery: No occlusion or significant stenosis. No aneurysm. Left anterior cerebral artery: No occlusion or significant stenosis. No aneurysm. POSTERIOR CIRCULATION: Right vertebral artery: Right vertebral artery is mildly elongated and tortuous. No stenosis, thrombosis, or occlusion. Posterior inferior cerebellar artery is patent. No aneurysm. Left vertebral artery: Left vertebral artery is mildly elongated and tortuous. No stenosis, thrombosis, or occlusion. Posterior inferior cerebellar artery is patent. No aneurysm. Basilar artery: Basilar artery is normal caliber without stenosis, thrombosis, or occlusion. There are patent bilateral anterior inferior cerebellar and superior cerebellar arteries. No aneurysm. Right posterior cerebral artery: P1 segment of right posterior cerebral artery is not identified with a posterior communicating artery supplying P2 segment which is anatomic variant origin of posterior cerebral artery. No stenosis or occlusion. No evidence of aneurysm. Left posterior cerebral artery: No occlusion or significant stenosis. No aneurysm. IMPRESSION: Unremarkable MRA. Electronically signed by: Gwen Murrell On 02/23/2021 12:15:21 PM
[2021-02-23 15:41] LABS: BASO % 0.5 % (0.0-1.0); EOS # 0.2 10^3/uL (0.0-0.5); EOS % 2.4 % (0.0-3.0); HEMATOCRIT 40.8 % (36.0-47.0); HEMOGLOBIN 12.4 g/dl (12.0-15.5); LYMPH # 1.3 10^3/uL (1.5-5.0); LYMPH % 16.5 % (24.0-44.0); MEAN CORPUSCULAR HEMOGLOBIN 27.1 pg (27.0-33.0); MEAN CORPUSCULAR HGB CONC 30.4 g/dl (32.0-36.5); MEAN CORPUSCULAR VOLUME 89.3 fl (80.0-96.0); MONO # 0.6 10^3/uL (0.0-0.8); MONO % 7.4 % (2.0-8.0); NEUTROPHILS # 5.5 10^3/uL (1.5-8.5); NEUTROPHILS % 72.8 % (36.0-66.0); PLATELET COUNT, AUTOMATED 377 10^3/uL (150-450); RED BLOOD COUNT 4.57 10^6/uL (4.00-5.40); WHITE BLOOD COUNT 7.6 10^3/uL (4.0-10.0)
[2021-02-23 16:15] LABS: ERYTHROCYTE SEDIMENTATION RATE 34 mm/hr (0-20)
== END ==
LOC: M PLARAD 09:59
PROVIDERS: ATTEND Physician Assistant
DX: M79.7 Fibromyalgia (principal); R51.9 Headache, unspecified; H93.13 Tinnitus, bilateral